=== PATIENT | female | born 1990 | race Caucasian/White ===

== ENCOUNTER → 2024-02-04 07:05 | Outpatient (REF) | payer BC, SELFPAY | LOC: RAD 07:05 | PROVIDERS: ATTENDING PHYSICIAN Nurse Practitioner Family; FAMILY PHYSICIAN Family Medicine | DX: Z34.91 Encounter for supervision of normal pregnancy, unspecified, first trimester (principal) | CPT/HCPCS: 76801 ==

== ENCOUNTER → 2024-04-03 16:14 | Outpatient (REF) | payer BC, SELFPAY | LOC: PNTC 16:14 | PROVIDERS: ATTENDING PHYSICIAN Obstetrics & Gynecology | DX: Z34.91 Encounter for supervision of normal pregnancy, unspecified, first trimester (principal) | CPT/HCPCS: 76805 ==

== ENCOUNTER → 2024-08-07 15:09 | Outpatient (REF) | payer OTHER, SELFPAY | LOC: PNTC 15:09 | PROVIDERS: ATTENDING PHYSICIAN Obstetrics & Gynecology | DX: Z34.90 Encounter for supervision of normal pregnancy, unspecified, unspecified trimester (principal); O32.1XX0 Maternal care for breech presentation, not applicable or unspecified | CPT/HCPCS: 76815 ==

== ENCOUNTER 2024-08-28 08:05 | Inpatient (IN) | payer OTHER, SELFPAY ==
[2024-08-28 08:31] VITALS: BP 114/70; BMI 26.8
[2024-08-28 09:00] LABS: % Basophils 0.4 % (0-2); % Eosinophils 0.7 % (0-6); % Immature Granulocytes 0.7 % (0-0.5); % Lymphocytes 23.6 % (20.5-51.1); % Monocytes 9.1 % (1.7-9.3); % Neutrophils 65.5 % (42.2-75.2); Absolute Eosinophils 0.1 10^3/uL (0-0.7); Absolute Immature Granulocytes 0.1 10^3/uL (0-0.05); Absolute Lymphocytes 1.8 10^3/uL (1.2-3.4); Absolute Monocytes 0.7 10^3/uL (0.1-0.6); Hemoglobin 10.6 g/dL (12.0-16.0); Mean Corp Hgb Conc. 34.2 g/dL (33.0-37.0); Mean Corpuscular Hgb 30.7 pg (27.0-31.0); Mean Corpuscular Volume 89.9 fL (81.0-99.0); Mean Platelet Volume 10.4 fL (7.4-10.4); Nucleated Red Blood Cells % 0 %; Platelet Count 226 10^3/uL (130-400); Red Blood Cell Count 3.45 10^6/uL (4.20-5.40); White Blood Cell Count 7.6 10^3/uL (4.8-10.8)
[2024-08-28] MEDS: PITOCIN 30 UNITS/NSS 500 ML IV ×2 (09:06→18:04)
[2024-08-28] MEDS: LR 1000 IV (09:06)
[2024-08-28] MEDS: FENTANYL/BUPIVACAINE 100 EPIDURAL (16:20)
[2024-08-28] MEDS: SUBLIMAZE 100 MCG EPIDURAL (16:20)
[2024-08-29 05:30] LABS: Hematocrit 28.4 % (37.0-47.0); Hemoglobin 9.3 g/dL (12.0-16.0)
[2024-08-29] MEDS: PRENATAL PLUS 1 TABLET PO (07:37)
[2024-08-29 13:39] LABS: Syphilis/T. pallidum Ab Reflex Negative (Negative)
[2024-08-29] MEDS: FEOSOL 325 MG PO (21:37)
[2024-08-29] MEDS: SENOKOT-S 1 TABLET PO (21:39)
[2024-08-30] MEDS: TYLENOL 650 MG PO ×2 (03:00→08:12)
[2024-08-30] MEDS: FEOSOL 325 MG PO (08:06)
[2024-08-30] MEDS: PRENATAL PLUS 1 TABLET PO (08:06)
== END 2024-08-30 12:20 | disposition home or self-care (01) | DRG 807 ==
LOC: LDRP 08:05
PROVIDERS: ADMITTING PHYSICIAN Obstetrics & Gynecology
PROC: 0HQ9XZZ Repair Perineum Skin, External Approach (ICD-10-PCS; 2024-08-28)
PROC: 10E0XZZ Delivery of Products of Conception, External Approach (ICD-10-PCS; 2024-08-28)
PROC: 10907ZC Drainage of Amniotic Fluid, Therapeutic from Products of Conception, Via Natural or Artificial Opening (ICD-10-PCS; 2024-08-28)
DX: O48.0 Post-term pregnancy (principal); Z37.0 Single live birth; Z3A.41 41 weeks gestation of pregnancy; O70.0 First degree perineal laceration during delivery
CPT/HCPCS: 88307; 36415; 85014; 85018; 85025; 86780; 86850; 86900; 86901